=== PATIENT | female | born 1980 | race Caucasian/White ===

== ENCOUNTER 2016-08-14 18:46 | Emergency (ER) | payer SELFPAY ==
[~2016-08-14] VITALS: Ht 162.6 cm; Wt 69.9 kg
[~2016-08-14 18:46] MED LIST: BACTRIM DS 800/1 TAB PO; IBUPROFEN800 M1 PO; LEVAQUIN500 MG PO; NORCO 5/325 MG1 TAB PO; PREDNISONE10 MG PO; TYLENOL325 M1 PO; ULTRAM50 MG PO
[2016-08-14 19:11] VITALS: BP 129/85
--- NOTE | 2016-08-14 19:37 | NUR ---
Patient ambulated to bed 05.
--- NOTE | 2016-08-14 19:42 | NUR ---
PT 35Y/F PRESENTS TO ER W/ C/O DIZZINESS SINCE YESTERDAY.
--- NOTE | 2016-08-14 20:25 | NUR ---
Dr. Navarro evaluating patient at bedside.
[2016-08-14] MEDS ORDERED: NACL 0.9% 1,000 ML IV ONE (20:35)
[2016-08-14] MEDS ORDERED: oxyCODONE/APAP 5/325 MG 1 TAB TAB PO ONE ×2 (20:35→22:55)
--- NOTE | 2016-08-14 20:40 | NUR ---
PT TAKEN TO CT SCAN
--- NOTE | 2016-08-14 20:53 | NUR ---
CAME BACK FROM CT SCAN
[2016-08-14] MEDS ORDERED: IBUPROFEN 800 MG TAB PO ONE (21:50)
--- NOTE | 2016-08-14 23:40 | NUR ---
Patient discharged with v/s stable. Written and verbal after care instructions given and explained. Patient alert, oriented and verbalized understanding of instructions. Ambulatory with steady gait. All questions addressed prior to discharge. ID band removed. Patient advised to follow up with PMD. Rx of MOTRIN 800 PO given. Patient educated on indication of medication including possible reaction and side effects. Opportunity to ask questions provided and answered.
[2016-08-14 23:42] VITALS: BP 124/63
== END 2016-08-14 23:40 | disposition home or self-care (01) ==
LOC: MED 18:46
DX: M94.0 Chondrocostal junction syndrome [Tietze] (principal); R42 Dizziness and giddiness; Z87.39 Personal history of other diseases of the musculoskeletal system and connective tissue
CPT/HCPCS: 36415; 70450; 71010; 80053; 81002; 81025; 83880; 84484; 85025; 85610; 85730; 93005; 96360; 99285; J7030